=== PATIENT | male | born 1960 | race Caucasian/White ===

== ENCOUNTER 2019-05-11 17:41 | Inpatient (IN) | payer MEDICAID ==
[~2019-05-11] VITALS: Ht 177.8 cm; Wt 76.7 kg
[~2019-05-11 17:41] MED LIST: CLOP75TA2 PO; TAMS-11 PO
[2019-05-11 17:55] VITALS: BP_SYST 187
--- NOTE | 2019-05-11 18:00 | NUR ---
Patient triaged and placed in waiting room. VSS and patient appears in no acute distress at this time. Accompanied by family , awaiting available bed, and MD notified of need for MSE.
--- NOTE | 2019-05-11 20:29 | NUR ---
Patient to ER bed 8 for evaluation. Side rails up.
--- NOTE | 2019-05-11 20:30 | NUR ---
Pt C/O Lt hand and wrist pain, redness and swelling since last night. Pt reports he fell out of bed two days prior and braced his fall with the affected hand. Denies any KO, fever, Chest pain, N/V or any other symptoms at this time.
[2019-05-11] MEDS ORDERED: NS 500 ML IV ONE (21:30)
[2019-05-11] MEDS ORDERED: fentaNYL CITRATE/PF 100 MCG/2 ML AMP IVP ONE (21:30)
[2019-05-11] MEDS ORDERED: CLINDAMYCIN 900 mg/50mL D5W 50 ML IV ONE (21:30)
--- NOTE | 2019-05-11 21:50 | NUR ---
# 18 gauge angiocath placed to RT AC. Use of asceptic technique. Opsite placed over site. Blood return noted. Blood for lab drawn from site. Flushed with 10 cc of normal saline. No evidence of infiltration noted. Patient tolerated well.
[2019-05-11 22:07] LABS: HEMATOCRIT 42.9 % (36-54); HEMOGLOBIN 14.7 g/dL (14.0-18.0); MEAN CORPUSCULAR HEMOGLOBIN 31 pg (27-31); MEAN CORPUSCULAR HGB CONC 34 % (32-36); MEAN CORPUSCULAR VOLUME 91 fL (79.0-98.0); PLATELET COUNT (AUTO) 246 K/uL (130-430); RED BLOOD CELL COUNT(AUTO) 4.72 MIL/uL (4.2-6.2); RED CELL DISTRIBUTION WIDTH 13.8 % (9.0-15.0); WHITE BLOOD COUNT (AUTO) 14.9 K/uL (4.8-10.8)
--- NOTE | 2019-05-11 22:30 | NUR ---
Pt is resting comfortably in bed, no acute distress noted at this time
--- NOTE | 2019-05-11 23:00 | NUR ---
Pt resting in bed, no acute distress noted. Pt is at a tolerable level after repositioning splint. Will continue to monitor.
[2019-05-11 23:17] LABS: ALBUMIN 3.7 g/dL (3.4-4.8); CALCIUM 8.6 mg/dL (8.4-11.0); CREATININE 0.95 mg/dL (0.55-1.30); TOTAL BILIRUBIN 1.2 mg/dL (0.0-1.0)
[2019-05-11 23:21] LABS: POTASSIUM 2.8 mmol/L (3.5-5.1)
[2019-05-11] MEDS ORDERED: POTASSIUM CHLORIDE 20 MEQ TAB.PRT.SR PO ONE (23:30)
[2019-05-12] LABS: BASOPHILS % (MANUAL) 0 % (0-2); EOSINOPHILS % (MANUAL) 0 % (0-7); LYMPHOCYTES % (MANUAL) 16 % (20-46); MONOCYTES % (MANUAL) 8 % (0-11)
[2019-05-12] MEDS ORDERED: CYCL-10 PO (01:00)
[2019-05-12] MEDS ORDERED: DIAZ10TA4 PO (01:00)
[2019-05-12] MEDS ORDERED: DIPH25CA83 PO (01:00)
[2019-05-12] MEDS ORDERED: HYDR-4274 PO (01:00)
--- NOTE | 2019-05-12 01:01 | NUR ---
Medication reconciliation completed with information provided by patient. Any prior medication reconciliation on file was reviewed and corrected.
--- NOTE | 2019-05-12 01:02 | NUR ---
Patient will be admitted to care of Dr. Pineda. Admitted to Med Surg unit. Will go to room 123A. Belongings list completed. Complete and up to date summary report printed. SBAR report to be given at bedside with opportunity for questions.
[2019-05-12] MEDS ORDERED: HYDROcodone/ACETAMIN 10-325 MG TAB PO ONE (01:15)
--- NOTE | 2019-05-12 02:03 | NUR ---
ADMIT NOTE Received pt from ER to the floor with a diagnosis of cellulitis. Admission process initiated. patient oriented to pain management, safety and call light-teach back done.
--- NOTE | 2019-05-12 02:15 | NUR ---
ADMITTED A 59 YEAR OLD MALE WHO WAS BROUGHT IN FROM THE E.R.VIA GURNEY (@0152) WITH AN ADMITTING DIAGNOSIS OF CELLULITIS (LEFT HAND) UNDER THE SERVICE OF . PLACED IN ROOM 123-A. PT.IS ALERT,ORIENTED,AMBULATES WITH ASSIST. AFEBRILE, NOT IN ACUTE DISTRESS. VERBALIZED LEFT HAND PAIN (10/10). BP ALSO ELEVATED AT 168/105. NORCO 10/325 MG GIVEN IN E.R. @ 0117. PAULA WRAP NOTED ON THE AFFECTED HAND. WILL CONTINUE TO MONITOR. NEEDS ATTENDED.
[2019-05-12 02:27] VITALS: BP_SYST 168
--- NOTE | 2019-05-12 04:20 | NUR ---
AWAKE, VERBALIZED RELIEF OF PAIN. CONDITION REMAINS UNCHANGED. WILL CONTINUE TO MONITOR.
[2019-05-12] MEDS ORDERED: ALBUTEROL SULFATE 0.083% 2.5 MG/3 ML VIAL.NEB INH PRN (05:30)
[2019-05-12] MEDS ORDERED: ONDANSETRON HCL 4 MG/2 ML VIAL IVP PRN (05:30)
[2019-05-12] MEDS ORDERED: DIPHENHYDRAMINE HCL 25 MG CAPSULE PO SCH (05:30)
[2019-05-12] MEDS ORDERED: HYDROcodone/ACETAMIN 5-325 MG TAB (NORCO/ VICODIN) PO PRN (05:30)
[2019-05-12] MEDS: cefTRIAXone 1 GM IVPB PREMIX 50 ML IV SCH ×3 (05:30→21:58)
[2019-05-12] MEDS ORDERED: POTASSIUM CHLORIDE 20 MEQ TAB.PRT.SR PO ONE (05:30)
[2019-05-12] MEDS ORDERED: DIAZEPAM 5 MG TABLET (VALIUM) PO SCH (05:30)
[2019-05-12 05:51] VITALS: BP_SYST 147
[2019-05-12] MEDS: HYDROcodone/ACETAMIN 10-325 MG TAB PO PRN ×3 (06:00→23:28)
--- NOTE | 2019-05-12 06:00 | NUR ---
COMPLAINED OF WORSENING PAIN. NORCO 10/325 MG PO GIVEN ORDERED.
--- NOTE | 2019-05-12 07:15 | NUR ---
ENDORSED CARE TO FAROOQ ALDRIDGE.
[2019-05-12 08:00] VITALS: BP_SYST 147
--- NOTE | 2019-05-12 08:00 | NUR ---
RN INITIAL NOTES RECEIVED PATIENT IN BED ALERT AWAKE AND VERBAL NO DISTRESS, RESP EVEN AND UNLABORED , WITH PAULA WRAP TO LEFT HAND PATIENT ABLE TO ANSWER QUESTION , RESP EVEN AND UNLABORED , SAFETY ENSURED , PATIENT IS BRP WITH GOOD SAFETY AWARENESS
[2019-05-12 08:09] LABS: BASOPHILS % (AUTO) 0.2 % (0.0-2.0); EOSINOPHILS % (AUTO) 0.3 % (0.0-4.0); HEMATOCRIT 41.9 % (36-54); HEMOGLOBIN 14.2 g/dL (14.0-18.0); LYMPHOCYTES # (AUTO) 2.4 K/uL (1.0-5.5); LYMPHOCYTES % (AUTO) 20.1 % (20.5-51.5); MEAN CORPUSCULAR HEMOGLOBIN 31 pg (27-31); MEAN CORPUSCULAR HGB CONC 34 % (32-36); MEAN CORPUSCULAR VOLUME 92 fL (79.0-98.0); MONOCYTES # (AUTO) 2.3 K/uL (0.0-1.0); MONOCYTES % (AUTO) 19.5 % (1.7-9.3); NEUTROPHILS # (AUTO) 7.2 K/uL (1.8-7.7); NEUTROPHILS % (AUTO) 59.9 % (40.0-70.0); PLATELET COUNT (AUTO) 220 K/uL (130-430); RED BLOOD CELL COUNT(AUTO) 4.58 MIL/uL (4.2-6.2); RED CELL DISTRIBUTION WIDTH 14.1 % (9.0-15.0)
[2019-05-12 08:39] LABS: ALBUMIN 3.4 g/dL (3.4-4.8); CREATININE 0.89 mg/dL (0.55-1.30); POTASSIUM 3.6 mmol/L (3.5-5.1); TOTAL BILIRUBIN 1.5 mg/dL (0.0-1.0)
[2019-05-12] MEDS: CYCLOBENZAPRINE HCL 10 MG TABLET (FLEXERIL) PO SCH (08:49)
[2019-05-12 09:26] LABS: CALCIUM 8.7 mg/dL (8.4-11.0)
--- NOTE | 2019-05-12 10:00 | NUR ---
ROUNDS PATIENT NEEDS ATTENDED IV ATB GIVEN
--- NOTE | 2019-05-12 10:47 | NUR ---
CONSULT ID CELLULITIS DR GUTIERREZ [phone] S/W [facility]
--- NOTE | 2019-05-12 12:00 | NUR ---
ROUNDS PATIENT NOT IN ANY DISTRESS , CONVERSANT AND NO COMPLAIN OF PAIN AT THIS TIME
[2019-05-12 12:32] VITALS: BP_SYST 134
--- NOTE | 2019-05-12 14:39 | NUR ---
ROUNDS PATIENT IS WATCHING TV AT THIS TIME NO DISTRESS
--- NOTE | 2019-05-12 16:00 | NUR ---
PATIENT ROUNDS PATIENT NOT IN ANY DISTRESS, AWAITING FOR ID CONSULT TO COME
[2019-05-12 16:43] VITALS: BP_SYST 128
--- NOTE | 2019-05-12 18:50 | NUR ---
ENDORSEMENT WILL CONT WITH CARE , PATIENT STILL WITH IMMOBILIZER TO LEFT HAND PATIENT STATED NOT TO TOUCH THE LEFT HAND FOR NOW HE STATED HE WAS TOLD NOT TO OPEN FOR NOW , ABLE TO MOVE FINGERS AND CIRCULATION CHECKED NO SIGN OF IMPENDING CIRCULATION, PATIENT GIVEN PAIN MEDS AND EFFECTIVE , AT THIS TIME WILL CONT CARE IVF AND IV ATB
--- NOTE | 2019-05-12 23:00 | NUR ---
AMBULATED TO THE BATHROOM AND VOIDED FREELY BUT UNABLE TO MEASURE HOE MUICH OUTPUT. DIAZEPAM DOSE AND FLEXIRIL DOSE GIVEN PATIENT STILL IN PAIN AND ANXIUOS EVEN WITH THE NORCO 10 MG GIVEN ,HR 120/MIN. NOTED THE HEART RATE HAS BEEN ON THE RANGE SINCE AM. WILL CON TINUE TO MINOTORL
[2019-05-13] VITALS (7 sets, daily range): BP systolic 111–160
[2019-05-13] MEDS: CYCLOBENZAPRINE HCL 10 MG TABLET (FLEXERIL) PO SCH (00:04)
[2019-05-13] MEDS: HYDROcodone/ACETAMIN 10-325 MG TAB PO PRN ×5 (00:07→22:14)
--- NOTE | 2019-05-13 02:39 | NUR ---
AMBULATED TO THE BATHROOM AND VOIDED FREELY. ASSISTED BACK TO BED , VITAL SIGNS CHECKED AND RECORDED. HR 132/MIN. DR UNDERWOOD PAGED TO INFORM ABOUT THE HEART RATE, MESSAGE LEFT WITH THE EXCHANGE. AWAITING RESPONSE.
--- NOTE | 2019-05-13 03:01 | NUR ---
DR UNDERWOOD PAGED FOLLOW UO THE PATIENT HEART RATE TO 131/MIN. AND MAINTAINES IN THE RATE, AWAITING RESPONSE, PATIENT FIXED IN BED AND MADE COMFORTABLE.
--- NOTE | 2019-05-13 03:07 | NUR ---
PAGED I PAGED DR. UNDERWOOD I SPOKE WITH MARIO HINES
--- NOTE | 2019-05-13 05:00 | NUR ---
DR BUI IN AND INFORMED ABOUT THE PATIENT,S PERSISTENT ELEVATED HEART RATE AND LOW SATURATION AND THAT THE PATIENT WAS PLACED ON OXYGEN NASAL CANNULA. HAD HAVING A HARD TIME VOIDIDNG ,
[2019-05-13] MEDS ORDERED: NACL 0.9% 1,000 ML IV SCH (05:30)
--- NOTE | 2019-05-13 06:01 | NUR ---
NSALINE BOLUS INFUSING.WITH NO FURTHER COMPLAINTS OF PAIN.WITH CALL LIGHT WITHIN REACH
[2019-05-13 06:35] LABS: BASOPHILS # (AUTO) 0.1 K/uL (0.0-0.2); BASOPHILS % (AUTO) 0.3 % (0.0-2.0); EOSINOPHILS % (AUTO) 0.2 % (0.0-4.0); HEMATOCRIT 42.7 % (36-54); HEMOGLOBIN 14.4 g/dL (14.0-18.0); LYMPHOCYTES # (AUTO) 2.8 K/uL (1.0-5.5); LYMPHOCYTES % (AUTO) 17.6 % (20.5-51.5); MEAN CORPUSCULAR HEMOGLOBIN 31 pg (27-31); MEAN CORPUSCULAR HGB CONC 34 % (32-36); MEAN CORPUSCULAR VOLUME 92 fL (79.0-98.0); MONOCYTES # (AUTO) 2.4 K/uL (0.0-1.0); MONOCYTES % (AUTO) 14.5 % (1.7-9.3); NEUTROPHILS # (AUTO) 10.9 K/uL (1.8-7.7); NEUTROPHILS % (AUTO) 67.4 % (40.0-70.0); PLATELET COUNT (AUTO) 227 K/uL (130-430); RED BLOOD CELL COUNT(AUTO) 4.65 MIL/uL (4.2-6.2); RED CELL DISTRIBUTION WIDTH 14.4 % (9.0-15.0); WHITE BLOOD COUNT (AUTO) 16.2 K/uL (4.8-10.8)
[2019-05-13 06:51] LABS: ALBUMIN 3.2 g/dL (3.4-4.8); CALCIUM 8.1 mg/dL (8.4-11.0); CREATININE 1.01 mg/dL (0.55-1.30); POTASSIUM 3.5 mmol/L (3.5-5.1)
[2019-05-13 06:52] LABS: TOTAL BILIRUBIN 0.6 mg/dL (0.0-1.0)
--- NOTE | 2019-05-13 07:03 | NUR ---
NSALE BOLUS CONSUMED AND VITAL SIGNS CHECKED AND RECORDED.
--- NOTE | 2019-05-13 08:00 | NUR ---
received awake and no c/o discomfort.vss.resp even and unlabored.cast to rt arm intact.sl to rfa patent.gen weakness noted to ext bl.set up for breakfast.xontinue to monitor.
[2019-05-13] MEDS: TAMSULOSIN HCL 0.4 MG CAP PO SCH (08:48)
[2019-05-13] MEDS: cefTRIAXone 1 GM IVPB PREMIX 50 ML IV SCH (08:49)
--- NOTE | 2019-05-13 08:53 | NUR ---
Nutrition Update Franky Scale 17 noted. Pt admitted for cellulitis. Diet: regular BMI: 24.2 kg/m2 RD to follow per nutrition care standards.
--- NOTE | 2019-05-13 13:00 | NUR ---
prn pain med given for c/o pain to lt arm.vss resp even and unlabored.voids per urinal with assist.continue to monitor.
--- NOTE | 2019-05-13 13:16 | NUR ---
NOTES: TRIMMING CUTTER MACHINE was referred by CM to see patient for DCP. TRIMMING CUTTER MACHINE met with patient at bedside. Pt was cooperative, alert and oriented, disheveled in appearance with normal mood, normal speech and average eye contact. Addendum: 05/13/19 at 1431 by Bere Hoskins TRIMMING CUTTER MACHINE Pt is a 59 y/o single male who came in via private vehicle after having "high fever and swollen left leg". Pt states prior to coming in, he was scheduled to have a left knee replacement at [facility] but developed bronchitis. H&P stated pt is admitted for cellulitis on the left wrist. Pt lives in a one zhang home with "20 steps" to get to the front door. Pt lives with his parents and 2 brothers. Pt states his primary caregiver is his father who is also the primary caregiver of his ill mother (multiple surgeries). Pt stated he is mostly dependent on his ADL and utilizes a walker to ambulate. Pt has a walker, cane and bedside commode at home. Pt states he does not have any source of income, but is receiving general relief. Pt states he tried getting SSI in the past but was not able to qualify for unknown reason, but will try to get it again since office is 3 blocks away from him. Pt states he has depression and anxiety at times and zoë with "sitting in a place where its nice and quiet". Pt states his PCP prescribes him with depression medication that he takes daily, unknown amount. Pt states he has history substance use/abuse and been sober for 10 years from cocaine, cigarettes and marijuana. TRIMMING CUTTER MACHINE provided pt with office list, and mental health. Pt will phone SS/CM as to what SNF/HHS he prefers.
--- NOTE | 2019-05-13 18:17 | NUR ---
prn pain med given for arm pain 12/06.vss resp even and unlabored dr christy in to see and changed abx.remains with cast to lt arm and csm good.up to bsc to void with assist.continue to monitor
--- NOTE | 2019-05-13 19:21 | NUR ---
REPORT GIVEN TO OSVALDO OBREGON
--- NOTE | 2019-05-13 20:00 | NUR ---
REPORT GIVEN @ START OF SHIFT FROM DAY SHIFT RN, PATIENT IS A/O/X/4, RESPIRATIONS EVEN AND UNLABORED, ROOM AIR., LEFT HAND EDEMATOUS AND WRAPPED WITH PAULA BANDAGE, ALL FINGERS IN LEFT HAND WARM TO TOUCH BUT PATIENT STATES VERY DIFFICULT FOR HIM TO MOVE HIS FINGERS, CAPILLARY REFILL ADEQUATE IN ALL FINGER TIPS OF LEFT HAND,, VOIFING MBR COLORED URINE VIA BSC, REQUIRES ASSISTANCE WHEN GETTING OUT OF BED, RIGHT LEG WEAKNESS NOTED.RAC S/L PATENT AND INTACT, TOLERATES PO FLUIDS IN SMALL FREQUENT SIPS, ENCOURAGED TO DRINK MORE.REQUESTED PAIN MEDICATION, UNABLE TO GIVE TILL LATER, STATES OK, SR'S UP X'S 3, CALL LIGHT WITHIN REACH, BED IN LOW POSITION, PATIENT MOVED FROM 123-A TO 125-A, RESTING QUIETLY IN BED WATCHING TV., WILL CONTINUE TO MONITOR.
[2019-05-13] MEDS: ceFAZolin SODIUM 1 GM in D5W 50 ML IV SCH (21:42)
--- NOTE | 2019-05-14 | NUR ---
PATIENT PREVIOUSLY MEDICATED WITH NORCO 10/325 MG PO FOR C/O PAIN IN LEFT HAND 12/06,RESTING QUIETLY IN BED WITH EYES CLOSED, EASILY AROUSED, WILL CONTINUE TO MONITOR.
[2019-05-14 01:50] VITALS: BP_SYST 115
[2019-05-14 04:00] VITALS: BP_SYST 116
--- NOTE | 2019-05-14 04:00 | NUR ---
PATIENT CONTINUES TO REST QUIETLY IN BED WITH EYES CLOSED, LEFT HAND RESTING ON PILLOW, ASSISTED WHEN GETTING OUT OF BED TO BSC, WILL CONTINUE TO MONITOR.
[2019-05-14] MEDS: HYDROcodone/ACETAMIN 10-325 MG TAB PO PRN ×2 (05:25→11:49)
[2019-05-14] MEDS: ceFAZolin SODIUM 1 GM in D5W 50 ML IV SCH ×2 (05:56→14:20)
--- NOTE | 2019-05-14 07:15 | NUR ---
OPENING NOTE PT AWAKE AND ALERT. LEFT HAND DISPLAYS NON-PITTING EDEMA 2+. CAP REFILL IS <3 SECONDS. PT DENIES PAIN AT THIS TIME. IV LINE INTACT AND PATENT, NO SIGNS OF INFILTRATION NOTED. NO ACUTE DISTRESS NOTED. ALL NEEDS MET. CALL LIGHT IN REACH. FALL AND ASPIRATION PRECAUTIONS IN PLACE. CONTINUE TO MONITOR.
[2019-05-14 08:00] VITALS: BP_SYST 115
[2019-05-14] MEDS: TAMSULOSIN HCL 0.4 MG CAP PO SCH ×2 (08:21→08:42)
--- NOTE | 2019-05-14 08:32 | NUR ---
CANCELLED CONSULT: Spoke with Sonja to cancel ID consultation.
--- NOTE | 2019-05-14 08:48 | NUR ---
MEDS MEDS ADMINISTERED ORDERED PER MD. EDUCATION GIVEN. TOLERATED WELL. NO ACUTE DISTRESS NOTED. ALL NEEDS MET. CALL LIGHT IN REACH. FALL AND ASPIRATION PRECAUTIONS IN PLACE. CONTINUE TO MONITOR.
--- NOTE | 2019-05-14 10:25 | NUR ---
NOTE ASSISTED PATIENT TO COMMODE, TRUDI WELL. ALL NEEDS MET. CALL LIGHT IN REACH. CONT TO MONITOR
--- NOTE | 2019-05-14 12:00 | NUR ---
NOTE ASSISTED WITH REPOSITIONING PATIENT FOR LUNCH. ALL NEEDS MET. CALL LIGHT IN REACH. CONT TO MONITOR
--- NOTE | 2019-05-14 12:10 | NUR ---
Discharge Planning: DCP faxed [facility] (f [phone] p [phone]) DCP will fax PT notes when they are posted. Addendum: 05/14/19 at 1421 by Afia Parrish DP [facility] p [phone]) patient accepted to [facility] ([phone]) [facility], [facility] ([phone]) 4:00pm P/U nurse aware packet taken to nurse station.
[2019-05-14 13:14] VITALS: BP_SYST 145
[2019-05-14 14:13] VITALS: BP_SYST 112
--- NOTE | 2019-05-14 14:20 | NUR ---
ROUTINE MEDS ROUTINE MEDS ADMINISTERED ORDERED PER MD. EDUCATION GIVEN. TOLERATED WELL. NO ACUTE DISTRESS NOTED. ALL NEEDS MET. FALL AND ASPIRATION PRECAUTIONS IN PLACE. CALL LIGHT IN REACH. CONTINUE TO MONITOR.
--- NOTE | 2019-05-14 14:30 | NUR ---
RESPONSIBLE LIBERTARIAN NOTIFIED BY NORI PURIFICATION OPERATOR HELPER AT NURSE'S STATION.
--- NOTE | 2019-05-14 14:55 | NUR ---
REPORT GIVEN TO LUIS CARLOS GARCIA FROM [facility] FOR TRANSFER
--- NOTE | 2019-05-14 15:34 | NUR ---
DC PLANNING Per sofya Orelily community planner, pt wants CM to speak w father if ok for [facility]. Called & spoke w pt's father Farhad, , informed of plan to dc to [facility] for PT. Looked up Medicare ratings while on , father ok w dc to [facility] today. Spoke w pt @ bedside w Afia, informed that I spoke w father & was agreeable w [facility], pt agreeable w dc to [facility] today @ 4pm.
--- NOTE | 2019-05-14 15:45 | NUR ---
PT TRANSFERRED Report given to Rand ALDRIDGE at [facility]. Transfer packet with Transfer Orders and Medication Reconciliation form given to EMT with report. Exitcare provided. [facility] ID band removed, replaced with ID band with pt's name and . IV to RAC intact and patent with good blood return and flushes freely; Rand requested to keep IV due to patient will continue on [facility] IVPB at SNF. All belongings sent with patient. Home medications (Diazepam, Cyclobenzaprine, Diphenhydramine) returned to patient and EMT will transport meds to nurse at [facility]. Patient left floor via gurney escorted by EMT in no distress.
[2019-05-14 16:23] VITALS: BP_SYST 141
== END 2019-05-14 15:45 | DRG 342 ==
LOC: SED 17:41 → SMU 05-12 00:31
PROVIDERS: ADMIT Internal Medicine Hospice and Palliative Medicine; ATTEND Internal Medicine Hospice and Palliative Medicine
DX: S62.212A Bennett's fracture, left hand, initial encounter for closed fracture (principal); E87.1 Hypo-osmolality and hyponatremia; L03.114 Cellulitis of left upper limb; K21.9 Gastro-esophageal reflux disease without esophagitis; E87.6 Hypokalemia; N28.9 Disorder of kidney and ureter, unspecified; N40.0 Benign prostatic hyperplasia without lower urinary tract symptoms; F41.9 Anxiety disorder, unspecified; J45.909 Unspecified asthma, uncomplicated; J43.9 Emphysema, unspecified; W18.39XA Other fall on same level, initial encounter; Y93.89 Activity, other specified; Z86.73 Personal history of transient ischemic attack (TIA), and cerebral infarction without residual deficits; Z87.891 Personal history of nicotine dependence; Z93.3 Colostomy status; Y92.89 Other specified places as the place of occurrence of the external cause; Z79.899 Other long term (current) drug therapy; Y99.8 Other external cause status
CPT/HCPCS: 36415; 73090; 80053; 83605; 83735-TC; 85007; 85025; 85027; 87040-TC; 93306; 96365; 96375; 99285; J0690; J0696; J3010; J3490; J7030; J7040; J7060

== ENCOUNTER 2019-06-09 17:02 | Emergency (ER) | payer MEDICAID ==
[~2019-06-09] VITALS: Ht 177.8 cm; Wt 74.8 kg
[~2019-06-09 17:02] MED LIST changes: -CLOP75TA2 PO; +CYCL-10 PO; +DIAZ10TA4 PO; +DIPH25CA83 PO; +HYDR-4274 PO; -TAMS-11 PO
[2019-06-09 17:35] VITALS: BP_SYST 167
--- NOTE | 2019-06-09 19:12 | NUR ---
Patient to ER bed 02 to gown for evaluation. Side rails up.
--- NOTE | 2019-06-09 19:52 | NUR ---
Pt presents to ER with c/o mutliple complaints. Pt A&Ox4. Pt states he has left lower jaw pain with swelling that began 10 days. Pt states his primary MD gives him amoxicillin to take as needed. Pt states he took amoxicillin for 3 days with no relief. Pt states pain 10/10. Pt states he also took [facility] 10mg this morning with no relief of pain. Pt states left knee pain. P states pain 8/10. Pt states substernal chest pain, nausea, vomiting. SOB, chills and pain with urination. Upon assessment, pt has clear bilateral lungs with no use of accessory muscles. Pt has splint on left wrist. Pt states he fractured wrist 30 days ago and has not followed up with orthopedics. Will continue to monitor.
--- NOTE | 2019-06-09 19:54 | NUR ---
ER Dr. Moreno at bedside examining patient.
[2019-06-09] MEDS ORDERED: cefTRIAXone 1 GM IVPB PREMIX 50 ML IV ONE (20:00)
[2019-06-09] MEDS ORDERED: fentaNYL CITRATE/PF 100 MCG/2 ML AMP IVP ONE (20:00)
--- NOTE | 2019-06-09 20:07 | NUR ---
RADIOLOGY AT BEDSIDE
--- NOTE | 2019-06-09 20:13 | NUR ---
LAB AT BEDSIDE.
[2019-06-09] MEDS ORDERED: NACL 0.9% 1,000 ML IV ONE (20:15)
[2019-06-09 20:26] LABS: BASOPHILS % (AUTO) 0.3 % (0.0-2.0); EOSINOPHILS % (AUTO) 0.4 % (0.0-4.0); HEMATOCRIT 42.4 % (36-54); HEMOGLOBIN 14.3 g/dL (14.0-18.0); LYMPHOCYTES % (AUTO) 29.2 % (20.5-51.5); MEAN CORPUSCULAR HEMOGLOBIN 31 pg (27-31); MEAN CORPUSCULAR HGB CONC 34 % (32-36); MEAN CORPUSCULAR VOLUME 91 fL (79.0-98.0); MONOCYTES # (AUTO) 0.8 K/uL (0.0-1.0); MONOCYTES % (AUTO) 11.1 % (1.7-9.3); NEUTROPHILS # (AUTO) 4.1 K/uL (1.8-7.7); PLATELET COUNT (AUTO) 240 K/uL (130-430); RED BLOOD CELL COUNT(AUTO) 4.66 MIL/uL (4.2-6.2); WHITE BLOOD COUNT (AUTO) 6.9 K/uL (4.8-10.8)
--- NOTE | 2019-06-09 20:30 | NUR ---
PT MEDICATED PER MD ORDERS. PT TOLERATED WELL. WILL CONTINUE TO MONITOR.
[2019-06-09 20:38] LABS: BILIRUBIN,URINE NEGATIVE (NEGATIVE); BLOOD, URINE NEGATIVE (NEGATIVE); CLARITY/URINE CLEAR (CLEAR); COLOR,URINE YELLOW (YELLOW); GLUCOSE,URINE NEGATIVE (NEGATIVE); KETONES,URINE TRACE (NEGATIVE); LEUKOCYTE ESTERASE ,URINE NEGATIVE (NEGATIVE); NITRITE, URINE NEGATIVE (NEGATIVE); PROTEIN URINE NEGATIVE (NEGATIVE); UROBILINOGEN,URINE 0.2 (0.2-1.0)
--- NOTE | 2019-06-09 20:43 | NUR ---
Medication reconciliation completed with information provided by patient. Any prior medication reconciliation on file was reviewed and corrected.
--- NOTE | 2019-06-09 21:18 | NUR ---
Pt off floor to radiology via gurney in stable condition.
[2019-06-09 21:22] LABS: ALBUMIN 3.9 g/dL (3.4-4.8); CREATININE 0.88 mg/dL (0.55-1.30); POTASSIUM 3.9 mmol/L (3.5-5.1); TOTAL BILIRUBIN 0.3 mg/dL (0.0-1.0)
[2019-06-09] MEDS ORDERED: MORPHINE 4 MG/ML INJ. SYRINGE IVP ONE (21:45)
--- NOTE | 2019-06-09 22:00 | NUR ---
Pt medicated per MD orders. Pt tolerated well. Will continue to monitor.
--- NOTE | 2019-06-09 22:16 | NUR ---
ER Dr. Moreno at bedside explaining results to patient.
[2019-06-09 22:44] VITALS: BP_SYST 141
--- NOTE | 2019-06-09 22:44 | NUR ---
Patient given written and verbal discharge instructions and verbalizes understanding. ER MD Dr. Moreno discussed with patient the results and treatment provided. Patient in stable condition. ID arm band removed. IV catheter removed intact and dressing applied, no active bleeding. Rx of Bactrim, Keflex, Eldridge, and Benadryl given. Patient educated on pain management and to follow up with PMD. Pain Scale 0/10. Opportunity for questions provided and answered. Medication side effect fact sheet provided.
== END 2019-06-09 22:44 | disposition home or self-care (01) ==
LOC: SED 17:02
DX: L03.211 Cellulitis of face (principal); J45.909 Unspecified asthma, uncomplicated; K21.9 Gastro-esophageal reflux disease without esophagitis; M25.532 Pain in left wrist; Z79.899 Other long term (current) drug therapy
CPT/HCPCS: 29125; 36415; 70486; 71045; 74176; 80053; 81003; 83605; 84484; 85025; 87040; 87086; 93005; 96365; 96375; 99285; J0696; J2270; J3010; J7030

== ENCOUNTER 2019-06-15 15:13 | Emergency (ER) | payer MEDICAID ==
[~2019-06-15] VITALS: Ht 177.8 cm; Wt 74.8 kg
[~2019-06-15 15:13] MED LIST changes: -DIAZ10TA4 PO
[2019-06-15 15:32] VITALS: BP_SYST 150
[2019-06-15 16:30] LABS: BASOPHILS % (AUTO) 0.2 % (0.0-2.0); EOSINOPHILS % (AUTO) 0.5 % (0.0-4.0); HEMATOCRIT 43.7 % (36-54); HEMOGLOBIN 14.6 g/dL (14.0-18.0); LYMPHOCYTES # (AUTO) 1.2 K/uL (1.0-5.5); LYMPHOCYTES % (AUTO) 20.8 % (20.5-51.5); MEAN CORPUSCULAR HEMOGLOBIN 30 pg (27-31); MEAN CORPUSCULAR HGB CONC 33 % (32-36); MEAN CORPUSCULAR VOLUME 90 fL (79.0-98.0); MONOCYTES # (AUTO) 0.8 K/uL (0.0-1.0); MONOCYTES % (AUTO) 12.5 % (1.7-9.3); PLATELET COUNT (AUTO) 199 K/uL (130-430); RED BLOOD CELL COUNT(AUTO) 4.84 MIL/uL (4.2-6.2); RED CELL DISTRIBUTION WIDTH 13.8 % (9.0-15.0)
[2019-06-15 16:44] LABS: CALCIUM 9.1 mg/dL (8.4-11.0); CREATININE 0.83 mg/dL (0.55-1.30); POTASSIUM 3.7 mmol/L (3.5-5.1)
[2019-06-15 16:49] LABS: TOTAL BILIRUBIN 0.4 mg/dL (0.0-1.0)
[2019-06-15] MEDS ORDERED: KETOROLAC TROMETHAMINE 30 MG VIAL IVP ONE (17:45)
[2019-06-15] MEDS ORDERED: NACL 0.9% 500 ML IV ONE (17:45)
--- NOTE | 2019-06-15 20:32 | NUR ---
Patient to ER bed 4 to gown for evaluation. Side rails up. Report given to LEIGH ALDRIDGE(REGISTRY).
[2019-06-15] MEDS ORDERED: KETOROLAC TROMETHAMINE 30 MG VIAL ONE (21:55)
[2019-06-15 23:08] LABS: BILIRUBIN,URINE 1+ (NEGATIVE); BLOOD, URINE NEGATIVE (NEGATIVE); CLARITY/URINE CLEAR (CLEAR); COLOR,URINE YELLOW (YELLOW); GLUCOSE,URINE NEGATIVE (NEGATIVE); KETONES,URINE 3+ (NEGATIVE); LEUKOCYTE ESTERASE ,URINE NEGATIVE (NEGATIVE); NITRITE, URINE NEGATIVE (NEGATIVE); PROTEIN URINE NEGATIVE (NEGATIVE); UROBILINOGEN,URINE 0.2 (0.2-1.0)
[2019-06-15 23:15] LABS: RBC,URINE NONE SEEN /HPF (0-3); WBC,URINE 0-3 /HPF (0-3)
[2019-06-15 23:16] LABS: BACTERIA,URINE FEW /HPF (None Seen); MUCUS,URINE 1+ /LPF (None Seen)
[2019-06-15 23:33] VITALS: BP_SYST 136
== END 2019-06-15 23:35 | disposition home or self-care (01) ==
LOC: SED 15:13
DX: R10.84 Generalized abdominal pain (principal); J45.909 Unspecified asthma, uncomplicated; K21.9 Gastro-esophageal reflux disease without esophagitis; N28.9 Disorder of kidney and ureter, unspecified; Z87.430 Personal history of prostatic dysplasia; Z86.73 Personal history of transient ischemic attack (TIA), and cerebral infarction without residual deficits
CPT/HCPCS: 36415; 74018; 80053; 81000; 83690; 85025; 96374; 99284; J1885; J7030

== ENCOUNTER 2020-04-16 03:09 | Emergency (ER) | payer MEDICAID ==
[~2020-04-16] VITALS: Ht 177.8 cm; Wt 77.1 kg
[2020-04-16 03:09] VITALS: BP_SYST 142
--- NOTE | 2020-04-16 05:05 | NUR ---
ER in triage examining patient.
--- NOTE | 2020-04-16 06:40 | NUR ---
Patient BIB by BLS/EMS. C/O headache x today. Per reported, patient had headache , no injury or trauma today. Hx Asthma, HTN, COPD, Broken right patella. A/O,X4, no confused or dizziness, headache, pain rate 3-4/10.
[2020-04-16 06:48] VITALS: BP_SYST 142
--- NOTE | 2020-04-16 06:48 | NUR ---
Patient given written and verbal discharge instructions and verbalizes understanding. ER MD discussed with patient the results and treatment provided. Patient in stable condition. ID arm band removed. NO Rx given. Patient educated on pain management and to follow up with PMD. Pain Scale 3-4/10. Opportunity for questions provided and answered.
== END 2020-04-16 06:48 | disposition home or self-care (01) ==
LOC: SED 03:09
DX: S09.90XA Unspecified injury of head, initial encounter (principal); J45.909 Unspecified asthma, uncomplicated; N28.9 Disorder of kidney and ureter, unspecified; K21.9 Gastro-esophageal reflux disease without esophagitis; Z86.73 Personal history of transient ischemic attack (TIA), and cerebral infarction without residual deficits; W22.8XXA Striking against or struck by other objects, initial encounter; Y93.89 Activity, other specified; Y92.89 Other specified places as the place of occurrence of the external cause; Y99.8 Other external cause status
CPT/HCPCS: 70450-TC; 76376; 99284

== ENCOUNTER 2022-08-13 14:38 | Inpatient (IN) | payer MEDICAID ==
[~2022-08-13] VITALS: Ht 175.3 cm; Wt 77.1 kg
[~2022-08-13 14:38] MED LIST changes: -CYCL-10 PO; +CYCL10TA24 PO
[2022-08-13 14:40] VITALS: BP_SYST 118
--- NOTE | 2022-08-13 14:40 | NUR ---
Patient triaged and placed in waiting room. VSS and patient appears in no acute distress at this time. Accompanied by SELF, awaiting available bed, and MD notified of need for MSE.
--- NOTE | 2022-08-13 14:50 | NUR ---
ER Dr.de abebe at bedside examining patient.
[2022-08-13] MEDS ORDERED: AZITHROMYCIN 500 MG in D5W 250 ML IV ONE (15:00)
[2022-08-13] MEDS ORDERED: methylPREDNISolone SOD SUCC/PF 62.5 MG/ML VIAL IVP ONE (15:00)
[2022-08-13] MEDS ORDERED: ALBUTEROL SULFATE 0.083% 2.5 MG/3 ML VIAL.NEB INH ONE (15:00)
[2022-08-13] MEDS ORDERED: NS 1000 ML IV.SOLN IV ONE (15:00)
[2022-08-13] MEDS: HYDROcodone/ACETAMIN 5-325 MG TAB (NORCO/ VICODIN) PO ONE ×2 (15:00→18:51)
[2022-08-13 15:24] LABS: BASOPHILS % (AUTO) 0.3 % (0.0-2.0); EOSINOPHILS # (AUTO) 0.2 K/uL (0.0-0.4); EOSINOPHILS % (AUTO) 1.1 % (0.0-4.0); HEMATOCRIT 34.6 % (36-54); HEMOGLOBIN 11.7 g/dL (14.0-18.0); LYMPHOCYTES # (AUTO) 1.2 K/uL (1.0-5.5); LYMPHOCYTES % (AUTO) 6.9 % (20.5-51.5); MEAN CORPUSCULAR HEMOGLOBIN 30 pg (27-31); MEAN CORPUSCULAR HGB CONC 34 % (32-36); MEAN CORPUSCULAR VOLUME 89 fL (79.0-98.0); MONOCYTES # (AUTO) 1.8 K/uL (0.0-1.0); MONOCYTES % (AUTO) 10.4 % (1.7-9.3); NEUTROPHILS # (AUTO) 13.8 K/uL (1.8-7.7); NEUTROPHILS % (AUTO) 81.3 % (40.0-70.0); PLATELET COUNT (AUTO) 389 K/uL (130-430); RED BLOOD CELL COUNT(AUTO) 3.87 MIL/uL (4.2-6.2); RED CELL DISTRIBUTION WIDTH 14.1 % (9.0-15.0)
[2022-08-13 15:45] LABS: ALANINE AMINOTRANSFERASE 82 U/L (12-78); ALBUMIN 2.5 g/dL (3.4-4.8); ANION GAP 13 (5-15); ASPARTATE AMINOTRANSFERASE 73 U/L (10-37); CHLORIDE 96 mmol/L (98-107); CREATININE 0.88 mg/dL (0.55-1.30); GFR AFRICAN AMERICAN 113 mL/min (>90); GLUCOSE 100 mg/dL (70-99); TOTAL BILIRUBIN 0.8 mg/dL (0.0-1.0); UREA NITROGEN, BLOOD 12 mg/dL (8-21)
[2022-08-13] MEDS ORDERED: KCL 40 mEq in 100 mL (PREMIX) 100 ML IV ONE (16:00)
[2022-08-13] MEDS ORDERED: POTASSIUM CHLORIDE 20 MEQ TAB.PRT.SR PO ONE (16:00)
--- NOTE | 2022-08-13 16:30 | NUR ---
# 20 gauge angiocath placed to right antecubital. Use of asceptic technique. Opsite placed over site. Blood return noted. Blood for lab drawn from site. Flushed with 10 cc of normal saline. No evidence of infiltration noted. Patient tolerated well.
--- NOTE | 2022-08-13 16:30 | NUR ---
moved from nonrebreather to 4L via nasal canula. pt saturated 92 percent
--- NOTE | 2022-08-13 17:20 | NUR ---
Admit bed requested Patient will be admitted to care of . Admitted to tele unit. Diagnosis pneuonia Inpatient (Yes or No) no Observation (Yes or No) no Orientation concerns or request close to nursing station (Yes or No) no Covid Status pending, collected On vent or bipap no Isolation requirements no Needs a sitter no From Home (Yes or if No enter name of facility) home Requires Dialysis (Yes or No) no Med Rec Completed (Yes of No) yes
[2022-08-13] MEDS ORDERED: CYCL10TA25 PO (17:39)
[2022-08-13] MEDS ORDERED: DIAZ10TA4 PO (17:39)
[2022-08-13] MEDS ORDERED: HYDR-3927 PO (17:39)
[2022-08-13 18:18] LABS: CLARITY/URINE CLEAR (CLEAR); COLOR,URINE YELLOW (YELLOW); GLUCOSE,URINE NEGATIVE (NEGATIVE); KETONES,URINE 2+ (NEGATIVE); PROTEIN URINE TRACE (NEGATIVE)
[2022-08-13 18:19] LABS: BILIRUBIN,URINE 1+ (NEGATIVE); BLOOD, URINE NEGATIVE (NEGATIVE); LEUKOCYTE ESTERASE ,URINE NEGATIVE (NEGATIVE); NITRITE, URINE NEGATIVE (NEGATIVE)
[2022-08-13 18:20] LABS: BACTERIA,URINE FEW /HPF (None Seen); HYALINE CASTS, URINE 0-10 /LPF (None Seen); MUCUS,URINE 1+ /LPF (None Seen); RBC,URINE NONE SEEN /HPF (0-3); WBC,URINE 0-3 /HPF (0-3)
[2022-08-13] MEDS ORDERED: AZITHROMYCIN 500 MG/VIAL (ZITHROMAX) IV ONE (18:43)
[2022-08-13] MEDS ORDERED: methylPREDNISolone SOD SUCC/PF 62.5 MG/ML VIAL ONE (18:44)
[2022-08-13] MEDS ORDERED: POTASSIUM CHLORIDE 20 MEQ TAB.PRT.SR ONE (18:45)
[2022-08-13] MEDS ORDERED: HYDROcodone/ACETAMIN 5-325 MG TAB (NORCO/ VICODIN) ONE (18:49)
--- NOTE | 2022-08-13 19:10 | NUR ---
COVID SWAB COLLECTED AND SENT TO LAB.
--- NOTE | 2022-08-13 19:47 | NUR ---
Received verbal report from outgoing nurse RODRIGO Connelly. Received pt awake and alert, no s/s of discomfort noted. IV not intact. Reinserted 22g in the left forearm, reattached normal saline IVF. Safety measures in place
--- NOTE | 2022-08-13 22:16 | NUR ---
Patient will be admitted to care of Dr Marquez. Admitted to Tele unit. Will go to room 130B. Belongings list completed. Complete and up to date summary report printed. SBAR report to be given at bedside with opportunity for questions.
--- NOTE | 2022-08-14 | NUR ---
pt is being admitted from ER with pneumonia ,on Exam alert oriented x 4. denies pain. state he is thirsty.provided a urinal ,sponge bathed, offered clear liquids and linen changed.vitals obtained
--- NOTE | 2022-08-14 02:07 | NUR ---
CONSULTATION PAGED REASON FOR CONSULTATION: pneumonia WAS CONSULT CALLED? Y PERSON WHO WAS NOTIFIED: Piper CONSULTING PHYSICIAN: Dr. Gonzalez REQUESTING PHYSICIAN: Rebeca Angeles
[2022-08-14 04:44] VITALS: BP_SYST 98
[2022-08-14] MEDS: cefTRIAXone 1 GM in D5W 50 ML IV SCH (06:00)
--- NOTE | 2022-08-14 06:00 | NUR ---
A second iv inserted to left A/C 20G.ivf in progress .pt is awake alert and oriented x 3.meds given
[2022-08-14] MEDS: METHYLPREDNISOLONE SOD SUCC 40 MG/ML VIAL IVP SCH ×3 (07:19→21:26)
[2022-08-14] MEDS: IPRATROPIUM/ALBUTEROL SULFATE 3 ML AMPUL.NEB (DUONEB) INH SCH ×5 (07:20→23:00)
[2022-08-14] MEDS: BUDESONIDE 0.5 MG/2 ML AMPUL.NEB INH SCH ×2 (07:20→19:51)
[2022-08-14] MEDS: FAMOTIDINE 20 MG TABLET PO SCH (09:17)
[2022-08-14] MEDS: AZITHROMYCIN 500 MG in NS 250 ML IV SCH (09:18)
[2022-08-14] MEDS: ENOXAPARIN SODIUM 40 MG/0.4 ML SYRINGE SUBCUT SCH (09:18)
[2022-08-14 10:25] LABS: CALCIUM 8.3 mg/dL (8.4-11.0); CREATININE 0.83 mg/dL (0.55-1.30)
[2022-08-14 10:28] VITALS: BP_SYST 102
[2022-08-14 11:55] VITALS: BP_SYST 124
[2022-08-14] MEDS ORDERED: POTASSIUM CHLORIDE 10 MEQ TAB.PRT.SR PO ONE (12:30)
--- NOTE | 2022-08-14 13:48 | NUR ---
0800: NO S/S OF ANY ACUTE DISTRESS NOTED. ABLE TO VERBALIZE NEEDS NO C/O ANY PAIN OR DISCOMFORT NOTED. WILL CONTINUE TO MONITOR PATIENT. 0930: ADMINISTERED ALL DUE MEDS ORDERED. WILL REASSESS FOR ANY ADVERSE REACTION. 1300: TOLERATED PO WELL WITH GOOD APPETITE. LAB NORMAL LAB RESULT RELAYED TO MD WITH NEW ORDERS RECEIVED.
--- NOTE | 2022-08-14 16:00 | NUR ---
rt notes 1600 Sputum culture sent to lab.
[2022-08-14 16:52] VITALS: BP_SYST 95
[2022-08-14] MEDS: INSULIN REGULAR, HUMAN 100 UNITS/ML, 3 ML VIAL (humuLIN R) SUBCUT PRN (17:34)
--- NOTE | 2022-08-14 17:50 | NUR ---
1730: NO ADVERSE REACTION FROM MEDS NOTED. FSBS 182 MG/DL COVER WITH 2UNITS OF REGULAR INSULIN SQ PER SLIDING SCALE.
--- NOTE | 2022-08-14 18:59 | NUR ---
1859: CONTINUE TO TOLERATED PO WELL WITH GOOD APPETITE NO S/S OF HYPOGLYCEMIC NOTED. WILL ENDORSE PATIENT TO PM SHIFT NURSE.
--- NOTE | 2022-08-14 19:45 | NUR ---
RECEIVED PT SITTING UP IN BED, AOX3, EVEN AND NORMAL RESPIRATION, NO C/O SOB, CP OR PAIN ATT, NS AT 100 ONGOING TO THE LFA, WILL CONTINUE WITH POC
[2022-08-14 20:00] VITALS: BP_SYST 123
[2022-08-15] VITALS: BP_SYST 120
[2022-08-15] MEDS: IPRATROPIUM/ALBUTEROL SULFATE 3 ML AMPUL.NEB (DUONEB) INH SCH ×4 (03:00→15:00)
[2022-08-15] MEDS: cefTRIAXone 1 GM in D5W 50 ML IV SCH (05:42)
[2022-08-15] MEDS: METHYLPREDNISOLONE SOD SUCC 40 MG/ML VIAL IVP SCH (05:43)
[2022-08-15] MEDS: INSULIN REGULAR, HUMAN 100 UNITS/ML, 3 ML VIAL (humuLIN R) SUBCUT PRN (05:52)
--- NOTE | 2022-08-15 06:32 | NUR ---
PT SITTING UP IN BED, AOX3, EVEN AND NORMAL RESPIRATION, WITH EPISODE OF CONFUSION AND DISORIENTATION, NO C/O SOB, CP OR PAIN ATT, NS AT 100 ONGOING TO THE LFA W/O INFILTRATION, SAFETY PREC MAINTAINED, MRSA SENT, PT VOIDING W/O DIFFICULTY, AMBULATORY WITH ASSIST TO RESTROOM, TOLERATING REGULAR DIET, ON 2L OF OXYGEN VIA N/C, CALL LIGHT WITHIN REACH, WILL ENDORSE TO AM SHIFT
[2022-08-15 06:53] LABS: BASOPHILS # (AUTO) 0.1 K/uL (0.0-0.2); BASOPHILS % (AUTO) 0.2 % (0.0-2.0); HEMOGLOBIN 10.9 g/dL (14.0-18.0); LYMPHOCYTES # (AUTO) 1.2 K/uL (1.0-5.5); LYMPHOCYTES % (AUTO) 3.1 % (20.5-51.5); MEAN CORPUSCULAR HEMOGLOBIN 30 pg (27-31); MEAN CORPUSCULAR HGB CONC 33 % (32-36); MEAN CORPUSCULAR VOLUME 91 fL (79.0-98.0); MONOCYTES # (AUTO) 1.2 K/uL (0.0-1.0); NEUTROPHILS # (AUTO) 35.8 K/uL (1.8-7.7); NEUTROPHILS % (AUTO) 93.7 % (40.0-70.0); PLATELET COUNT (AUTO) 444 K/uL (130-430); RED BLOOD CELL COUNT(AUTO) 3.63 MIL/uL (4.2-6.2); RED CELL DISTRIBUTION WIDTH 14.2 % (9.0-15.0)
[2022-08-15] MEDS: BUDESONIDE 0.5 MG/2 ML AMPUL.NEB INH SCH (07:00)
[2022-08-15 07:43] VITALS: BP_SYST 116
--- NOTE | 2022-08-15 07:45 | NUR ---
Partial assessment completed as the pt has his personal clothing on and noncompliance. Charting is according to what was assessed and what info I could obtain verbally. Pt is confused and has flighty ideations. Requires frequent redirection and teaching.
[2022-08-15 07:54] LABS: WHITE BLOOD COUNT (AUTO) 38.2 K/uL (4.8-10.8)
[2022-08-15 08:02] LABS: CALCIUM 8.1 mg/dL (8.4-11.0); CREATININE 0.83 mg/dL (0.55-1.30)
[2022-08-15 08:03] LABS: ALBUMIN 2.5 g/dL (3.4-4.8); TOTAL BILIRUBIN 0.3 mg/dL (0.0-1.0)
[2022-08-15] MEDS: ENOXAPARIN SODIUM 40 MG/0.4 ML SYRINGE SUBCUT SCH (08:35)
[2022-08-15] MEDS: FAMOTIDINE 20 MG TABLET PO SCH (08:37)
[2022-08-15] MEDS ORDERED: DIAZEPAM 5 MG TABLET (VALIUM) PO PRN (09:30)
[2022-08-15] MEDS ORDERED: CYCLOBENZAPRINE HCL 10 MG TABLET (FLEXERIL) PO PRN (09:30)
[2022-08-15] MEDS ORDERED: HYDROcodone/ACETAMIN 10-325 MG TAB PO PRN (09:30)
[2022-08-15] MEDS: AZITHROMYCIN 500 MG in NS 250 ML IV SCH (09:57)
[2022-08-15 12:00] VITALS: BP_SYST 118
[2022-08-15 16:33] VITALS: BP_SYST 117
--- NOTE | 2022-08-15 18:32 | NUR ---
The pt has remained confused throughout the day with consistent flighty ideations. He has difficulty not wandering during conversations. He is in the hallway frequently and has visited his father who is also on the unit. Pt is alternating with requests to leave AMA because his dog has been left unattended with no family or friends to care for him. He now requested to visit his father before making a decision and is at his bedside. I have attempted to collect urine sample for legionella and even though pt reported he needs to urinate he has not provided a sample this evening. Waiting for results for multiple sputum labs tests. Will continue to monitor and redirect as needed.
--- NOTE | 2022-08-15 19:41 | NUR ---
AMA: Patient does not wish to proceed with medical care recommended by Dr. Marquez. Patient given information related to possible complications, up to and including , which could occur as a result of leaving hospital at this time. Patient verbalizes understanding of risks involved leaving against medical advice. Patient has signed AMA form. I have spoken with the pt's father who is also hospitalized to verify pt's prior mental capacity before allowing the pt to leave. He stated his son lives with him and this is his baseline. Pt was stating he was concerned about his dog being cared for but I let the pt know his father reported that his brother, Jose Luis, is caring for the animal and that the father will be discharged tomorrow and he stated he personally will care for the dog. Pt still insisted to leave. PIV and name band removed with no bleeding. Pt refused to allow staff to call a family member for transportation as he was informed that it will not be provided. Pt escorted to the front lobby with all personal belongings including medications from the pharmacy via W/C. Dr. Fall is covering Dr. Marquez and was paged at 1915 to notify of AMA. No return call at this time. Information has been provided to staff to pass the info
[2022-08-15] MEDS ORDERED: METHYLPREDNISOLONE SOD SUCC 40 MG/ML VIAL IVP SCH (21:00)
[2022-08-17 21:06] LABS: MYCOPLASMA PNEUMONIAE IgG 778 U/mL (0-99); MYCOPLASMA PNEUMONIAE IgM <770 U/mL (0-769)
[2022-08-17 21:06] LABS: MYCOPLASMA PNEUMONIAE IgG 108 U/mL (0-99); MYCOPLASMA PNEUMONIAE IgM 3724 U/mL (0-769)
[2022-08-19 14:06] LABS: ASPERGILLUS FLAVUS Negative (Neg:<1:1); ASPERGILLUS FUMIGATUS Negative (Neg:<1:1)
== END 2022-08-15 19:30 | disposition left against medical advice (07) | DRG 720 ==
LOC: SED 14:38 → STU 17:39 → SMU 08-15 13:30
PROVIDERS: ADMIT Internal Medicine; ATTEND Internal Medicine
DX: A41.9 Sepsis, unspecified organism (principal); J96.21 Acute and chronic respiratory failure with hypoxia; E43 Unspecified severe protein-calorie malnutrition; E87.3 Alkalosis; J18.9 Pneumonia, unspecified organism; J44.0 Chronic obstructive pulmonary disease with (acute) lower respiratory infection; J44.1 Chronic obstructive pulmonary disease with (acute) exacerbation; K21.9 Gastro-esophageal reflux disease without esophagitis; E87.6 Hypokalemia; Z79.899 Other long term (current) drug therapy; Z86.73 Personal history of transient ischemic attack (TIA), and cerebral infarction without residual deficits; Z87.891 Personal history of nicotine dependence; Z68.25 Body mass index [BMI] 25.0-25.9, adult
CPT/HCPCS: 36415; 36600; 71045; 71250-TC; 76376; 80048; 80053; 81000; 82803; 83605; 84484; 85025; 86606; 86631; 86738; 87040; 87070-TC; 87081; 87086; 87186-TC; 87205-TC; 87305; 93005; 94640; 94760; 99291; 99292; G0378; J0456; J0696; J1030; J1650; J1815; J2930; J7050; J7060; J7613; J7626